=== PATIENT | female | born 1985 | race Caucasian/White ===

== ENCOUNTER → 2019-07-18 | Outpatient (CLI) | payer BC ==
--- NOTE | 2019-07-18 16:13 | Diagnostic Imaging Report ---
INDICATION: survey. TECHNIQUE: Multiple Real-time grayscale images were obtained over the gravid uterus. COMPARISON: None. FINDINGS: There is a single live fetus in a breech, somewhat oblique position. The heart rate was recorded at 165 BPM. The placenta is posterior. The amniotic fluid volume is normal. The kidneys, bladder, and stomach are unremarkable. The brain is unremarkable. There is a four-chamber heart. There is a three-vessel cord with normal insertion. The spine is unremarkable although the lower portion of the spine is somewhat compromised due to position. Biometrical measurements are as follows: Biparietal 5.08 cm, age 21 weeks 3 days. Head circumference 19.64 cm, age 21 weeks 6 days. Abdominal circumference 17.53 cm, age 22 weeks 4 days. Femur length 3.56 cm, age 21 weeks 2 days. Sonographic estimate age: 21 weeks 6 days. Sonographic estimated date of delivery: 11/22/2019. Estimated Weight: 459 gm (+/- 67 gm). LMP percentile: 31%. heart rate: 165 beats per minute. number: 1 of 1. IMPRESSION: Single live IUP at 21 weeks 6 days gestational age. The estimated date of confinement sonographically is 11/22/2019. Dictated by: Dictated on workstation # [id number]
== END ==
LOC: RAD 14:12
PROVIDERS: ATTEND Obstetrics & Gynecology
DX: Z36.9 Encounter for antenatal screening, unspecified (principal); Z3A.21 21 weeks gestation of pregnancy
CPT/HCPCS: 76805

== ENCOUNTER 2019-11-29 07:00 | Inpatient (IN) | payer BC ==
[~2019-11-29] VITALS: Ht 177.8 cm; Wt 71.1 kg
--- NOTE | 2019-11-29 18:50 | NUR ---
BARI HAMMONDS presented to unit via AMBULATORY from ED, accompanied by S/O FOR INDUCTION OF LABOR. BARI HAMMONDS weighed, gowned, voided, and to bed. EFHM and TOCO applied, VS taken. BARI HAMMONDS oriented to bed controls, call light, TV, heat, and A/C controls.
[2019-11-29 19:30] VITALS: BP 134/87
[2019-11-29] MEDS ORDERED: D5 LR IV SOLUTION 1,000 ML IV SCH (19:50)
[2019-11-29 20:00] VITALS: BP 134/87
[2019-11-29] MEDS ORDERED: D5 LR IV SOLUTION 1,000 ML IV ONE (20:00)
[2019-11-29 20:04] LABS: BILIRUBIN,URINE NEGATIVE (NEGATIVE); CLARITY,URINE SL CLOUDY; COLOR,URINE YELLOW; GLUCOSE, URINE (UA) NEGATIVE (NEGATIVE); KETONES,URINE NEGATIVE (NEGATIVE); LEUKOCYTE ESTERASE ,URINE TRACE (NEGATIVE); NITRITE,URINE NEGATIVE (NEGATIVE); PH,URINE 6.5 (5-9); PROTEIN,URINE NEGATIVE (NEGATIVE)
[2019-11-29 20:15] LABS: HEMATOCRIT 36 % (35-52); HEMOGLOBIN 12.5 G/DL (11.5-16.0); MEAN CORPUSCULAR HEMOGLOBIN 32 PG (25-34); MEAN CORPUSCULAR HGB CONC 35 G/DL (32-36); MEAN CORPUSCULAR VOLUME 92 FL (80-99); RED CELL DISTRIBUTION WIDTH 13.9 % (10.0-14.5); WHITE BLOOD COUNT 11.2 10^3/uL (4.3-11.0)
[2019-11-29 20:16] LABS: BASOPHILS % (AUTO) 0 % (0-10); EOSINOPHILS # (AUTO) 0.2 10^3/uL (0.0-0.3); EOSINOPHILS % (AUTO) 1 % (0-10); LYMPHOCYTES % (AUTO) 9 % (12-44); MEAN PLATELET VOLUME 10.9 FL (7.4-10.4); MONOCYTES # (AUTO) 0.7 X 10^3 (0.0-1.0); MONOCYTES % (AUTO) 6 % (0-12); NEUTROPHILS # (AUTO) 9.3 X 10^3 (1.8-7.8); NEUTROPHILS % (AUTO) 83 % (42-75); PLATELET COUNT 240 10^3/uL (130-400)
[2019-11-29 20:17] LABS: AMORPHOUS SEDIMENT,UR MOD AMOR URATES /LPF; BACTERIA,URINE FEW /HPF; RBC,URINE 0-2 /HPF
--- OUTSIDE RECORDS SUMMARY | 2019-11-29 20:34 | XMS REPORT | CCD ---
Author Author Patty Dutton SFidencio BEALER [email or web address] Address [address] [place] [address] Phone Unavailable Care Team Providers Care Cardiac Cath Technologist Name Role Phone PP Unavailable CCM Unavailable Summary Purpose Interface Exchange Insurance Providers Payer name Policy type / Coverage type Covered constitution party ID Effective Begin Date Effective End Date Blue Cross Blue Shield Blue Cross/Blue Shield [id number] 2019 Unknown Family History Family History data not found Social History Social History Element Codes Description Effective Dates Marital status Unknown 11/07/2019 Employment Unknown Currently employed 11/07/[address]: 010885345 Never smoker 11/07/[address]: 487342 Currently drinks alcohol 11/06 Frequency of drinks SNOMED CT: 195000554 Drinks rarely 020 Has the patient ever used illegal drugs? Unknown Has nev er used illegal drugs 11/07/2019 Allergies, Adverse Reactions, Alerts Allergies, Adverse Reactions, Alerts data not found Problems Condition Codes Effective Dates Condition Status Contact dermatitis ICD-9: 692.9 ICD-10: L25.9 11/07/2019 Active Medications No Medication History data Medication Administered No Medication Administered data Immunizations No Immunization data Results No Results data Procedures No Procedures data Vital Signs Date Vital 11/07/2019 Blood Pressure 1: 117/63 Code: 8480-6 BMI: 22.2 Code: 92662-7 Heart Rate 1: 79 bpm Height: 5'10" Respiratory Rate: 16 bpm SpO2: 100% Tempera ture: 36.6 (C) / 97.8 (F) Weight: 155 lbs Functional Status No Functional Status data Reason For Visit Reason For Visit Effective Dates Notes well woman exam (18-39 years) 11/07/2019 Encounters Encounter Performer Location Codes Date () OFFICE/OUTPATIENT VISIT NEW Diagnosis: Contact dermatitis[ICD10: L25.9] Alayna CISNEROS S. Packet IslandND[facility] [email or web address] CPT-4: 31503 11/07/2019 Plan of Care Planned Activity Notes Codes Status Date Visit Diagnosis Plan: Contact dermatitis Discussion: p wendy is 38 weeks so steroids are contraindicated at this time. i called dr luu's office who was ok with patient using blue goo. rx was sent to [facility] to use as directed. instructed to call office with new or worsening symptoms. ICD-9 : 692.9 ICD-10 : L25.9 11/07/2019 Instructions No Instructions Medical Equipment No Medical Equipment data Health Concerns Section Health Concerns data not found Goals Section Goals data not found Interventions Section Interventions data not found Health Status Evaluations/Outcomes Section Health Status Evaluations/Outcomes data not found Advance Directives No Advance Directive data
--- OUTSIDE RECORDS SUMMARY | 2019-11-29 20:34 | XMS REPORT | CCD ---
Author Author Patty Dutton SFidencio BEALER [employer] Address [address] [place] [address] Phone Unavailable Care Team Providers Care Supervisor Contingents Name Role Phone PP Unavailable CCM Unavailable Summary Purpose Interface Exchange Insurance Providers Payer name Policy type / Coverage type Covered republican ID Effective Begin Date Effective End Date Blue Cross Blue Shield Blue Cross/Blue Shield [id number] 2019 Unknown Family History Family History data not found Social History Social History Element Codes Description Effective Dates Marital status Unknown 11/07/2019 Employment Unknown Currently employed 11/07/[address]: 742283576 Never smoker 11/07/[address]: 352366 Currently drinks alcohol 11/06 Frequency of drinks SNOMED CT: 191025084 Drinks rarely 020 Has the patient ever [...] 1: 117/63 Code: 8480-6 BMI: 22.2 Code: 78372-0 Heart Rate 1: 79 bpm Height: 5'10" Respiratory Rate: 16 bpm SpO2: 100% Tempera ture: 36.6 (C) / 97.8 (F) Weight: 155 lbs Functional Status No Functional Status data Reason For Visit Reason For Visit Effective Dates Notes well woman exam (18-39 years) 11/07/2019 Encounters Encounter Performer Location Codes Date () OFFICE/OUTPATIENT VISIT NEW Diagnosis: Contact dermatitis[ICD10: L25.9] Alayna CISNEROS S. [employer] [employer] CPT-4: 68138 11/07/2019 Plan of Care Planned Activity Notes [...]
--- OUTSIDE RECORDS SUMMARY | 2019-11-29 20:34 | XMS REPORT | CCD ---
Author Author Patty Dutton SFidencio BEALER [employer] Address [address] [place] [address] Phone Unavailable Care Team Providers Care Highwall Drill Operator Name Role Phone PP Unavailable CCM Unavailable Summary Purpose Interface Exchange Insurance Providers Payer name Policy type / Coverage type Covered constitution party ID Effective Begin Date Effective End Date Blue Cross Blue Shield Blue Cross/Blue Shield [id number] 2019 Unknown Family History Family History data not found Social History Social History Element Codes Description Effective Dates Marital status Unknown 11/07/2019 Employment Unknown Currently employed 11/07/[address]: 615462730 Never smoker 11/07/[address]: 561279 Currently drinks alcohol 11/06 Frequency of drinks SNOMED CT: 003796051 Drinks rarely 020 Has the patient ever [...] 1: 117/63 Code: 8480-6 BMI: 22.2 Code: 57156-1 Heart Rate 1: 79 bpm Height: 5'10" Respiratory Rate: 16 bpm SpO2: 100% Tempera ture: 36.6 (C) / 97.8 (F) Weight: 155 lbs Functional Status No Functional Status data Reason For Visit Reason For Visit Effective Dates Notes well woman exam (18-39 years) 11/07/2019 Encounters Encounter Performer Location Codes Date () OFFICE/OUTPATIENT VISIT NEW Diagnosis: Contact dermatitis[ICD10: L25.9] Alayna CISNEROS S. [employer] [employer] CPT-4: 65992 11/07/2019 Plan of Care Planned Activity Notes [...]
--- OUTSIDE RECORDS SUMMARY | 2019-11-29 20:34 | XMS REPORT | CCD ---
Author Author Patty Dutton SFidencio BEALER [employer] Address [address] [place] [address] Phone Unavailable Care Team Providers Care Thermit Welding Machine Operator Name Role Phone PP Unavailable CCM Unavailable Summary Purpose Interface Exchange Insurance Providers Payer name Policy type / Coverage type Covered democrat ID Effective Begin Date Effective End Date Blue Cross Blue Shield Blue Cross/Blue Shield [id number] 2019 Unknown Family History Family History data not found Social History Social History Element Codes Description Effective Dates Marital status Unknown 11/07/2019 Employment Unknown Currently employed 11/07/[address]: 030024240 Never smoker 11/07/[address]: 982390 Currently drinks alcohol 11/06 Frequency of drinks SNOMED CT: 545783635 Drinks rarely 020 Has the patient ever [...] 1: 117/63 Code: 8480-6 BMI: 22.2 Code: 36563-0 Heart Rate 1: 79 bpm Height: 5'10" Respiratory Rate: 16 bpm SpO2: 100% Tempera ture: 36.6 (C) / 97.8 (F) Weight: 155 lbs Functional Status No Functional Status data Reason For Visit Reason For Visit Effective Dates Notes well woman exam (18-39 years) 11/07/2019 Encounters Encounter Performer Location Codes Date () OFFICE/OUTPATIENT VISIT NEW Diagnosis: Contact dermatitis[ICD10: L25.9] Alayna CISNEROS S. [employer] CPT-4: 45096 11/07/2019 Plan of Care Planned Activity Notes [...]
--- OUTSIDE RECORDS SUMMARY | 2019-11-29 20:34 | XMS REPORT | CCD ---
Author Author Patty Dutton SFidencio BEALER [employer] Address [address] [place] [address] Phone Unavailable Care Team Providers Care Head Of Transport Logistics Name Role Phone PP Unavailable CCM Unavailable Summary Purpose Interface Exchange Insurance Providers Payer name Policy type / Coverage type Covered democrat ID Effective Begin Date Effective End Date Blue Cross Blue Shield Blue Cross/Blue Shield [id number] 2019 Unknown Family History Family History data not found Social History Social History Element Codes Description Effective Dates Marital status Unknown 11/07/2019 Employment Unknown Currently employed 11/07/[address]: 062581940 Never smoker 11/07/[address]: 735790 Currently drinks alcohol 11/06 Frequency of drinks SNOMED CT: 484137709 Drinks rarely 020 Has the patient ever [...] 1: 117/63 Code: 8480-6 BMI: 22.2 Code: 04415-0 Heart Rate 1: 79 bpm Height: 5'10" Respiratory Rate: 16 bpm SpO2: 100% Tempera ture: 36.6 (C) / 97.8 (F) Weight: 155 lbs Functional Status No Functional Status data Reason For Visit Reason For Visit Effective Dates Notes well woman exam (18-39 years) 11/07/2019 Encounters Encounter Performer Location Codes Date () OFFICE/OUTPATIENT VISIT NEW Diagnosis: Contact dermatitis[ICD10: L25.9] Alayna CISNEROS S. [employer]ER [employer] CPT-4: 98918 11/07/2019 Plan of Care Planned Activity Notes [...]
--- OUTSIDE RECORDS SUMMARY | 2019-11-29 20:34 | XMS REPORT | Continuity of Care Document ---
Demographics Preferred Language Unknown Marital Status Unknown Synagogue Affiliation Unknown Race Unknown Ethnic Group Unknown Author Author [employer] Organization [facility] Address Unknown Phone Unavailable Allergies There is no data. Medications There is no data. Problems Date Dx Coded Attending Type Code Diagnosis Diagnosed By 07/19/2019 DRAGAN LYNN DO Ot Z36.9 ENCOUNTER FOR SCREENING, UNSPE 07/19/2019 DRAGAN LYNN DO Ot Z3A.21 21 WEEKS GESTATION OF 08/06/2019 DRAGAN LYNN DO Ot Z36.9 ENCOUNTER FOR SCREENING, UNSPE 08/06/2019 DRAGAN LYNN DO Ot Z3A.21 21 WEEKS GESTATION OF 11/07/2019 W L25.9 Cont act dermatitis Nato, Alayna 11/07/2019 W L25.9 Cont act dermatitis Nato, Alayna 11/07/2019 W L25.9 Cont act dermatitis Nato, Alayna Procedures There is no data. Results Test Result Range CULTURE, URINE - 12/29/18 10:31 CULTURE, URINE, ROUTINE SEE NOTE NRG Encounters ACCT No. Visit Date/Time Discharge Status Pt. Type Provider Facility Loc./Unit Complaint [id number] 12/29/2018 08:20:00 Document Registration [id number] 07/18/2019 14:12:00 020 23:59:59 CLS Outpatient DRAGAN LYNN DO Via [facility] RAD [id number] 11/29/2019 19:00:00 P EN Preadmit DRAGAN LYNN DO INDUCTION [id number] 10/26/2019 15:22:34 10/26/2019 23:59:5 9 CLS Outpatient
[2019-11-29] MEDS ORDERED: PREN-54 PO (20:38)
[2019-11-29] MEDS ORDERED: fentaNYL 2 mcg/ml BUPIVA 0.125 100 ML ONE (21:41)
[2019-11-29] MEDS ORDERED: fentaNYL 2 mcg/ml BUPIVA 0.125 100 ML IV SCH (21:51)
[2019-11-29] MEDS ORDERED: LACTATED RINGERS 1,000 ML IV ONE (21:51)
[2019-11-29] MEDS ORDERED: BUPIVACAINE 0.25% 30 ML (SENSORCAINE) VIAL ONE (21:54)
[2019-11-29] MEDS ORDERED: fentaNYL INJECTION 100 MCG/2 ML AMP ONE (21:55)
[2019-11-29] MEDS ORDERED: NALOXONE 0.4 MG/ML 1 ML (NARCAN) VIAL IV PRN (22:00)
[2019-11-29] MEDS ORDERED: CATHETER FLUSH 10 ML SYR IV SCH (22:00)
[2019-11-29] MEDS ORDERED: CATHETER FLUSH 10 ML SYR IV PRN (22:00)
[2019-11-30] MEDS ORDERED: LIDOCAINE/EPI 2% 1:200,00 (XYLOCAINE) 10 ML VIAL ONE (04:33)
[2019-11-30] MEDS ORDERED: OXYTOCIN PRE-MIX DRIP 1,000 ML IV ONE (04:33)
[2019-11-30] MEDS ORDERED: IBUPROFEN 600 MG (MOTRIN) TAB PO ONE ×3 (08:01→20:04)
[2019-11-30] MEDS ORDERED: BENZOCAINE/MENTHOL (DERMOPLAST) 60 ML CAN TP ONE (08:01)
[2019-11-30] MEDS ORDERED: WITCH HAZEL(TUCKS) 40 EA JAR ONE (08:01)
[2019-11-30] MEDS ORDERED: OXYTOCIN PRE-MIX DRIP 500 ML IV SCH (08:15)
[2019-11-30] MEDS ORDERED: CEPHALEXIN 250 MG (KEFLEX) CAP PO ONE ×2 (18:01→23:54)
[2019-11-30] MEDS ORDERED: DOCUSATE SODIUM 100 MG (COLACE) CAP PO ONE (20:04)
[2019-12-01] MEDS ORDERED: IBUPROFEN 600 MG (MOTRIN) TAB PO ONE ×2 (03:06→09:40)
[2019-12-01 06:11] LABS: HEMOGLOBIN 10.8 G/DL (11.5-16.0)
[2019-12-01 06:12] LABS: MEAN PLATELET VOLUME 10.4 FL (7.4-10.4); RED CELL DISTRIBUTION WIDTH 14.3 % (10.0-14.5)
--- NOTE | 2019-12-01 06:55 | Anesthesia-Regional Post-Op ---
Regional Patient Condition Mental Status: Alert, Oriented x3 Circulation: Same as Pre-Op Headache: Absent Sensation: Full Recovery Motor Block: Absent Post Op Complications Complications None Follow Up Care/Instructions Patient Instructions None needed. Anesthesia/Patient Condition Patient is doing well, no complaints, stable vital signs, no apparent adverse anesthesia problems. No complications reported per nursing. JAMIA BLANCO CRNA Dec 01, 2019 06:55
--- NOTE | 2019-12-01 07:30 | NUR ---
Dr Shipman here to see pt. D/C orders rec'd
--- NOTE | 2019-12-01 07:39 | Postpartum Progress Note ---
Note Note Day # 1 Subjective: Patient is without complaints. Ambulating, voiding. Tolerating a regular diet without nausea or vomiting. Normal lochia. Pain is well controlled with oral pain medications. Breast feeding. Denies abdominal pain or trouble with bowel movements. Objective: Physical Exam: General - Alert and oriented, no apparent distress Abdomen - Soft, appropriately tender to palpation, non-distended, fundus firm at umbilicus Extremities - no edema, negative Niurka's bilaterally Cardiac- Regular rate and rhythm, no murmurs, Respiratory- Clear to auscultation bilaterally , no ronchi, rales, or crackles Assessment: post- day # 1, status post 1 vaginal delivery. Recovering well, hemodynamically stable, slight decrease in Hgb, [] Plan: Routine care. Encourage breast feeding. Encourage ambulation. Ferrous sulfate supplementation. Plan for discharge [] Vitals - Labs Labs Laboratory Tests 12/01/19 05:30: White Blood Count 9.0, Red Blood Count 3.48L, Hemoglobin 10.8L, Hematocrit 33L, Mean Corpuscular Volume 94, Mean Corpuscular Hemoglobin 31, Mean Corpuscular Hemoglobin Concent 33, Red Cell Distribution Width 14.3, Platelet Count 186, Mean Platelet Volume 10.4 SHREYAS ACEVEDO [facility] Dec 01, 2019 07:39
[2019-12-01] MEDS ORDERED: OXYTOCIN PRE-MIX DRIP 500 ML IV ONE (07:56)
--- NOTE | 2019-12-01 08:01 | History & Physical-OB ---
OB - Chief Complaint & HPI Date/Time Date of Admission: Date of Admission: Nov 29, 2019 at 18:44 Date seen by a Provider: Dec 01, 2019 Time Seen by a Provider: 07:55 Chief Complaint/History OB-Reason for Admission/Chief: Induction of Labor Hx : 1 Hx Para: 0 Expected Date of Delivery: Nov 20, 2019 Gestational Age in Weeks: 41 Gestational Age in Days: 3 Admission Nurse Assessment Rev: Yes Allergies and Home Medications Allergies Coded Allergies: No Known Drug Allergies (Unverified , 11/29/19) Home Medications Pnv No.118/Iron Fumarate/FA 1 Each Tab.chew, 1 EACH PO DAILY, (Reported) Patient Home Medication List Home Medication List Reviewed: Yes OB - History Hx of Present Care: Yes Ultrasounds: Normal mid trimester US Obstetrical Complications: None Medical Complications: None Delivery History Adverse Rxn to Tranfusion: No Patient Past Medical History n/a Social History/Family History Alcohol Use: Denies Use Recreational Drug Use: No Immunizations Hepatitis A: Yes Hepatitis B: Yes OB - Admission Exam Physical Exam Vitals: Vital Signs 11/29/19 11/29/19 20:00 21:00 Temp 37.0 Pulse 72 Resp 18 B/P (MAP) 134/87 (103) Pulse Ox 99 O2 Delivery Room Air HEENT: NCAT Heart: Rhythm Normal Lungs: Clear Abdomen: Gravid Extremities: Normal Reflexes: Normal Cervical Dilatation: 4cm Effacement: 75% Station: -1 Membranes: Intact Heart Rate: 130's Accelerations: Accelerations Present Decelerations: No Decelerations Short Term Variability: Present High School Coordinator Variability: Average (6-25) Contractions on Admission: < 5 Minutes Apart Intensity: Firm Stephens Scoring Tool (Modified) Dilation (cm): 3-4cm (2) Effacement (%): 51-79% (2) Descent/Station: -1,0 (2) Cervix Consistency: Soft (2) Cervix Position: Anterior (2) Subtract 1 point for: Nulliparity (-1) Stephens Score: 9 Labs Laboratory Tests Test 12/01/19 05:30 Range/Units White Blood Count 9.0 4.3-11.0 10^3/uL Red Blood Count 3.48 L 4.35-5.85 10^6/uL Hemoglobin 10.8 L 11.5-16.0 G/DL Hematocrit 33 L 35-52 % Mean Corpuscular Volume 94 80-99 FL Mean Corpuscular Hemoglobin 31 25-34 PG Mean Corpuscular Hemoglobin Concent 33 32-36 G/DL Red Cell Distribution Width 14.3 10.0-14.5 % Platelet Count 186 130-400 10^3/uL Mean Platelet Volume 10.4 7.4-10.4 FL OB - Assessment/Plan/Diagnosis Assessment Assessment: induction of labor Admission Dx 34 yo @ 41 weeks Induction of post dates labor GBS neg Admission Status: Inpatient Order (span 2 midnights) Reason for Inpatient Admission: Induction of labor Plan Plan: Induction Other Plan Patient already lilly regularly, will expectantly manage for now DRAGAN LYNN DO Dec 01, 2019 08:01
--- NOTE | 2019-12-01 08:05 | OB Labor & Delivery Record ---
L&D History Date of Service Date of Service: Dec 01, 2019 History Expected Date of Delivery: Nov 20, 2019 Gestational Age in Weeks: 41 Hx : 1 Hx Para: 0 Complications Events: Routine care Operative Indications (Cesarea: N/A-Vaginal Delivery Intrapartal Events: None L&D Stage1 Stage One Onset of Labor - Date: Dec 01, 2019 Monitors and Tracing Monitor Mode: External Heart Rate: 155 Monitor Accelerations: Uniform Station: -1 Retirement Variability: Average (6-10) Short Term Variability: Present Presentation: Vertex Vital Signs VS - Last 72 Hours, by Label 11/29/19 11/29/19 11/29/19 19:30 20:00 21:00 Temp 37.0 37.0 Pulse 63 63 72 Resp 18 18 18 B/P (MAP) 134/87 (103) Pulse Ox 99 99 O2 Delivery Room Air Room Air Room Air Rupture of Membranes Spontaneous Ruture of Membrane: Yes Amniotic Membrane Rupture Time: 02:00 Amniotic Membrane Fluid Desc.: Clear Vaginal Bleeding Description: Normal Show Progress/Notes Patient progressed without augmentation after received epidural to complete and + 2 station L&D Stage2 Stage Two Stage II Date: Dec 01, 2019 Monitors and Tracing Monitor Mode: External Heart Rate: 155 Monitor Accelerations: Uniform Monitor Decelerations: Variable Junior Architect Variability: Average (6-10) Short Term Variability: Present Position: Right Occiput Anterior Presentation: Vertex Cord Descript/Complications Cord Vessel Description: 3 Vessels Delivery Type Delivery Method: Spontaneous Vaginal Anterior Shoulder: Left Episiotomy/Perineal Laceration Laceraction(s)/Extensions: Yes Episiotomy Description: Midline Location Modifier: Medial Degree (describe repair) midline episiotomy repaired using 3-0 and 2-0 vicryl suture in usual fashion Condition of Infant Delivery 1 minute Comment: 8 5 minute Comment: 9 Condition of Infant Condition of : Living Exam: No Observed Abnormalities Resuscitation Resuscitation: N/A - Spontaneous Resp L&D Stage3 Stage Three Stage III Date: Dec 01, 2019 Pictocin Pitocin Administration Comment: 30 mu wide open at delivery of placenta Placenta Delivery Placenta Delivery: Spontaneous Delivery Summary Summary Estimated blood loss (mL): 350 Attending at delivery: Dragan Lynn DO Condition of Delivery Examined: Cervix Examined, Uterus Explored Post Hemorrhage: No Condition of Mother stable Condition of Infant (s) stable DRAGAN LYNN DO Dec 01, 2019 08:05
[2019-12-01] MEDS ORDERED: CEPH250C PO (08:06)
[2019-12-01] MEDS ORDERED: IBUP-1773 PO (08:06)
[2019-12-01] MEDS ORDERED: DOCU-143 PO (08:06)
[2019-12-01] MEDS ORDERED: FERROUS SULF 325 MG (IRON) TAB PO SCH (08:07)
--- NOTE | 2019-12-01 08:07 | Discharge Inst-Women's Service ---
Discharge Inst-Women's Serv Depart Medication/Instructions New, Converted or Re-Newed RX: RX on Chart Final Diagnosis PPD 1 NVD Problems Reviewed?: Yes Consults/Follow Up Additional Follow Up: Yes Orders/Referrals Dr. Lynn in 6 weeks Activity Activity: Activity as Tolerated Driving Instructions: No Driving for 1 Week NO SMOKING: NO SMOKING Nothing Inside Vagina: No Douching, No [place], No Tampons Diet Discharge Diet: No Restrictions Symptoms to Report to : Bleeding Excessive, Pain Increased, Fever Over 101 Degrees F, Vaginal Bleeding Increase, Questions/Concerns For Any Problems or Questions: Contact Your Physician DRAGAN LYNN DO Dec 01, 2019 08:07
[2019-12-01] MEDS ORDERED: PRENATAL VITAMIN 1 EA TAB PO SCH (08:08)
[2019-12-01] MEDS ORDERED: MEASLES,MUMPS,RUBELLA 1 EA INJ SC SCH (08:15)
[2019-12-01] MEDS ORDERED: oxyCODONE/APAP 5/325MG (PERCOCET 5) TABLET PO PRN ×2 (08:15)
[2019-12-01] MEDS ORDERED: TETANUS,DIPTH,PERTUSS P/F (BOOSTRIX) 0.5 ML VIAL IM SCH (08:15)
[2019-12-01] MEDS ORDERED: WITCH HAZEL(TUCKS) 40 EA JAR TOP PRN (08:15)
[2019-12-01] MEDS ORDERED: DIBUCAINE (NUPERCAINAL) 1% OINT 30 GM TOP PRN (08:15)
[2019-12-01] MEDS ORDERED: BENZOCAINE/MENTHOL (DERMOPLAST) 60 ML CAN TP PRN (08:15)
[2019-12-01] MEDS ORDERED: DOCUSATE SODIUM 100 MG (COLACE) CAP PO SCH (09:00)
[2019-12-01] MEDS ORDERED: DOCUSATE SODIUM 100 MG (COLACE) CAP PO ONE (09:39)
[2019-12-01] MEDS ORDERED: FERROUS SULF 325 MG (IRON) TAB PO ONE (09:39)
[2019-12-01] MEDS ORDERED: PRENATAL VITAMIN 1 EA TAB PO ONE (09:39)
[2019-12-01] MEDS ORDERED: CEPHALEXIN 250 MG (KEFLEX) CAP PO ONE (09:40)
[2019-12-01 09:45] VITALS: BP 106/59
[2019-12-01] MEDS: CEPHALEXIN 250 MG (KEFLEX) CAP PO SCH ×2 (09:47→13:29)
--- NOTE | 2019-12-01 11:37 | NUR ---
Discharge instructions explained to pt with copy provided along with prescriptions. Pt notified of follow up appt made. Pt verbalizes understanding of instructions and signs to verify. No questions or concerns voiced at this time.
[2019-12-01] MEDS ORDERED: IBUPROFEN 600 MG (MOTRIN) TAB PO SCH (12:00)
[2019-12-01] MEDS ORDERED: CATHETER FLUSH 10 ML SYR IV SCH (14:00)
--- NOTE | 2019-12-01 14:00 | NUR ---
Pt ambulates off unit to private vehicle accompanied by S.O., , and RN along with all personal belongings. No s/s of distress noted.
== END 2019-12-01 14:00 | disposition home or self-care (01) | DRG 807 ==
LOC: LDRP 18:44
PROVIDERS: ADMIT Obstetrics & Gynecology; ATTEND Obstetrics & Gynecology
PROC: 10E0XZZ Delivery of Products of Conception, External Approach (ICD-10-PCS; principal; 2019-12-01)
PROC: 0W8NXZZ Division of Female Perineum, External Approach (ICD-10-PCS; 2019-12-01)
DX: O48.0 Post-term pregnancy (principal); Z37.0 Single live birth; Z3A.41 41 weeks gestation of pregnancy
CPT/HCPCS: 36415; 81000; 85025; 85027; 86850; 86900; 86901; 87088

== ENCOUNTER → 2021-01-30 | Outpatient (CLI) | payer BC ==
[~2021-01-30] MED LIST: CEPH250C PO; DOCU-143 PO; IBUP-1773 PO; PREN-54 PO
--- NOTE | 2021-01-30 10:35 | Diagnostic Imaging Report ---
PROCEDURE: US Thyroid. TECHNIQUE: Multiple real-time grayscale images were obtained of the thyroid in various projections. INDICATION: Thyroid nodule. Right lobe of thyroid measures 5.0 x 1.4 x 1.6 cm and left lobe measures 5.8 x 1.3 x 1.5 cm. Isthmus is 2 mm in thickness. There is a tiny cyst left lobe of thyroid measuring 2 mm in size. No solid thyroid mass or dominant thyroid masses detected. IMPRESSION: Tiny left lobe thyroid nodule, likely a cyst. The study is otherwise unremarkable. Dictated by: Dictated on workstation # [id number]
== END ==
LOC: RAD 07:43
PROVIDERS: ATTEND Family Medicine
DX: E04.1 Nontoxic single thyroid nodule (principal)
CPT/HCPCS: 76536